=== PATIENT | female | born 1975 | race Hispanic/Latino ===

== ENCOUNTER 2018-03-09 14:33 | Emergency (ER) | payer BC ==
--- NOTE | 2018-03-09 14:56 | ED PDOC ---
Arrival/HPI - General Time Seen by Provider: 03/09/18 14:35 Historian: Patient - History of Present Illness Narrative History of Present Illness (Text): 03/09/18 14:45 42 year old female, whose PMH includes hyperthyroidism, who presents to the emergency department complaining of accidentally taking wrong medication prior to arrival. Patient reports she usually takes 3 to 4 Advil's for her neck arthritis pain, however she recently came from [place] and took the Advil bottle medication from her mother, which contained Metoprolol. Patient notes taking 3 or 4 tablets and began to feel lightheadedness, metallic taste in her mouth, and anxiousness. Patient denies chest pain, shortness of breath nausea, vomiting, or other complaints. She investigated the tablet with the pharmacist and it appeared to have an M/2 on the tablet so she believes it was Metoprolol 50mg XL for a total of possibly a max of 200mg XL at approximately 14:00. She used to take Atenolol, Meloxicam and Methaimazole for her hyperthyroidism but she hasn't because she's been traveling. PMD: None Time/Duration: Prior to Arrival Symptom Onset: Sudden Symptom Course: Unchanged Past Medical History - Provider Review Nursing Documentation Reviewed: Yes Family/Social History - Physician Review Nursing Documentation Reviewed: Yes Family/Social History: Unknown Family HX Allergies/Home Meds Allergies/Adverse Reactions: Allergies No Known Allergies Allergy (Verified 03/09/18 15:04) Home Medications: Home Meds Medication Instructions Recorded Confirmed Unobtainable 03/09/18 03/09/18 Review of Systems - Physician Review All systems were reviewed & negative as marked: Yes - Review of Systems Respiratory: absent: SOB Cardiovascular: absent: Chest Pain Gastrointestinal: absent: Abdominal Pain, Vomiting Neurological: Dizziness (lightheadedness ) Psychiatric: Anxiety Physical Exam Vital Signs Reviewed: Yes Vital Signs Temp Pulse Resp BP Pulse Ox 03/09/18 17:53 98.0 F 73 20 143/75 100 03/09/18 17:50 73 20 143/75 100 03/09/18 16:20 76 18 149/88 99 03/09/18 14:33 98.6 F 83 18 154/98 H 100 Temperature: Afebrile Blood Pressure: Hypertensive Pulse: Regular Respiratory Rate: Normal Appearance: Positive for: Well-Appearing, Comfortable Pain Distress: None Mental Status: Positive for: Alert and Oriented X 3 - Systems Exam Head: Present: Atraumatic, Normocephalic Pupils: Present: PERRL Extroacular Muscles: Present: EOMI Conjunctiva: Present: Normal Respiratory/Chest: Present: Clear to Auscultation, Good Air Exchange. No: Respiratory Distress, Accessory Muscle Use, Wheezes, Decreased Breath Sounds, Rales, Retracting, Rhonchi Cardiovascular: Present: Regular Rate and Rhythm, Normal S1, S2. No: Murmurs Abdomen: Present: Normal Bowel Sounds. No: Tenderness, Distention, Peritoneal Signs, Rebound, Guarding Upper Extremity: Present: Normal Inspection, Normal ROM, NORMAL PULSES, Neurovascularly Intact, Capillary Refill < 2s. No: Cyanosis, Edema, Tenderness , Swelling, Erythema, Deformity Lower Extremity: Present: Normal Inspection, NORMAL PULSES, Normal ROM, Neurovascularly Intact, Capillary Refill < 2 s. No: Edema, Cyanosis, Tenderness , Swelling, Erythema, Deformity Neurological: Present: GCS=15, CN II-XII Intact, Speech Normal, Motor Func Grossly Intact, Normal Sensory Function, Normal Cerebellar Funct, Memory Normal Skin: Present: Warm, Dry, Normal Color. No: Rashes Psychiatric: Present: Alert, Oriented x 3, Normal Insight, Normal Concentration Medical Decision Making ED Course and Treatment: 03/09/18 Impression: 42 year old female with unremarkable physical exam complaining of accidentally taking 3 to 4 Metoprolol tablets. Differential Diagnosis included but are not limited to: Accidental overdose at approx 14:00 with possibly Metoprolol 200mg XL max dose Plan: -- Close cardiac monitoring -- Case discussed with Poison Control [facility] who states that medication may not peak for 6 hours or more so he recommends observation. -- As per up to date: Duration: Oral: Immediate release: Variable (dose-related ; 50% reduction in maximum heart rate after single doses of 20, 50, and 100 mg occurred at 3.3, 5, and 6.4 hours, respectively); Extended release: ~24 hours -- She will be admitted for observation to telemetry. 03/09/18 16:42 Patient's blood pressure is stable and she's currently asymptomatic. Her WBC is 19. She has no cough. She has some urinary frequency. No fever. Will obtain a UA. 03/09/18 18:03 UA reviewed and negative for UTI. Leaving Against Medical Advice (AMA): The patient is choosing to leave against medical advice. I have personally explained to the patient that choosing to do so may result in permanent bodily harm or . I have discussed at great length that without further evaluation and monitoring there may be unforeseen circumstances and/or deterioration causing permanent bodily harm or as a result of their choice. The patient is alert, oriented, and shows the mental capacity to make clear decisions regarding the patients health care at this time. The patient continues to wish to leave against medical advice. In light of the patients decision to leave against medical advice, follow-up has been arranged and the patient is aware of the importance to following up as instructed. The patient has been advised that they should return to the emergency room immediately if they change their mind at any time, or if their condition begins to change or worsen in any way. - Lab Interpretations Lab Results: 03/09/18 16:08 03/09/18 16:08 Lab Results 03/09/18 16:55: Urine Color Yellow, Urine Appearance Clear, Urine pH 6.0, Ur Specific [place] 1.010, Urine Protein Negative, Urine Glucose (UA) Negative, Urine Ketones Negative, Urine Blood Negative, Urine Nitrate Negative, Urine Bilirubin Negative, Urine Urobilinogen 0.2, Ur Leukocyte Esterase Small H, Urine RBC 0 - 2, Urine WBC 2 - 5, Ur Epithelial Cells 4 - 5, Urine Bacteria Few 03/09/18 16:08: Sodium 141, Potassium 4.7, Chloride 108 H, Carbon Dioxide 21, Anion Gap 17, BUN 7, Creatinine 0.5 L, Est GFR ( Amer) > 60, Est GFR (Non -Af Amer) > 60, Random Glucose 113 H, Calcium 9.3 03/09/18 16:08: WBC 19.7 H, RBC 4.59, Hgb 13.4, Hct 38.9, MCV 84.7, MCH 29.2, MCHC 34.4, RDW 13.8, Plt Count 350, MPV 9.1, Gran % 78.7 H, Lymph % (Auto) 15.3 L, Burt % (Auto) 5.8, Eos % (Auto) 0.1 L, Baso % (Auto) 0.1, Gran # 15.49 H, Lymph # (Auto) 3.0, Burt # (Auto) 1.1 H, Eos # (Auto) 0.0, Baso # (Auto) 0.02 - Scribe Statement The provider has reviewed the documentation as recorded by the Silvano Campo Provider Scribe Attestation: All medical record entries made by the Scribe were at my direction and personally dictated by me. I have reviewed the chart and agree that the record accurately reflects my personal performance of the history, physical exam, medical decision making, and the department course for this patient. I have also personally directed, reviewed, and agree with the discharge instructions and disposition. Disposition/Present on Arrival - Present on Arrival Any Indicators Present on Arrival: No - Disposition Have Diagnosis and Disposition been Completed?: Yes Diagnosis: Accidental overdose Disposition: AGAINST MEDICAL ADVICE Disposition Time: 17:53 Patient Plan: Discharge Condition: FAIR Additional Instructions: YOUSIF GARCIA, thank you for letting us take care of you today. Your provider was Jose Roth DO and you were treated for ACCIDENTAL OVERDOSE. The emergency medical care you received today was directed at your acute symptoms. If you were prescribed any medication, please fill it and take as directed. It may take several days for your symptoms to resolve. Return to the Emergency Department if your symptoms worsen, do not improve, or if you have any other problems. Please contact your doctor or call one of the physicians/clinics you have been referred to that are listed on the Patient Visit Information form that is included in your discharge packet. Bring any paperwork you were given at discharge with you along with any medications you are taking to your follow up visit. Our treatment cannot replace ongoing medical care by a primary care provider outside of the emergency department. Thank you for allowing the [facility] team to be part of your care today. If you had an X-Ray or CT scan: A Radiologist will review the ED reading if any change in treatment is needed we will contact you. If you had a blood, urine, or wound culture: It will take several days for the results, if any change in treatment is needed we will contact you. If you had an STI test: It will take 48 hours for the results. Please call after 1 week if you have not heard back. Referrals: Judy Downing MD [Staff Provider] - Follow up with primary Forms: [employer] (Japanese), WORK NOTE
[2018-03-09 16:27] LABS: BASO # 0.02 K/mm3 (0.0-2.0); BASO % 0.1 % (0.0-3.0); EOS % 0.1 % (1.5-5.0); GRAN # 15.49 (1.4-6.5); GRAN % 78.7 % (50.0-68.0); HEMOGLOBIN 13.4 g/dL (12.0-16.0); LYMPH % 15.3 % (22.0-35.0); MEAN CELL VOLUME 84.7 fl (80.0-105.0); MEAN CORPUSCULAR HEMOGLOBIN 29.2 pg (25.0-35.0); MEAN CORPUSCULAR HGB CONC 34.4 g/dl (31.0-37.0); MEAN PLATELET VOLUME 9.1 fl (7.0-11.0); MONO # 1.1 (0.1-0.6); MONO % 5.8 % (1.0-6.0); RBC 4.59 10^6/uL (3.5-6.1); RED CELL DISTRIBUTION WIDTH 13.8 % (11.5-14.5); WHITE BLOOD COUNT 19.7 10^3/ul (4.5-11.0)
[2018-03-09 16:32] LABS: BLOOD UREA NITROGEN 7 mg/dL (7-21); CALCIUM 9.3 mg/dL (8.4-10.5); GFR AFRICAN-AMERICAN > 60; GFR NON-AFRICAN AMERICAN > 60
[2018-03-09 17:28] LABS: URINE BILIRUBIN NEGATIVE (NEGATIVE); URINE BLOOD NEGATIVE (NEGATIVE); URINE GLUCOSE (UA) NEGATIVE (NEGATIVE); URINE LEUKOCYTE ESTERASE SMALL Leu/uL (NEGATIVE); URINE PROTEIN NEGATIVE mg/dL (<30 mg/dL); URINE UROBILINOGEN 0.2 E.U./dL (<1 E.U./dL)
[2018-03-09 17:31] LABS: URINE APPEARANCE CLEAR (CLEAR); URINE COLOR YELLOW (YELLOW)
[2018-03-09 17:48] LABS: URINE BACTERIA FEW (NEG); URINE RBC 0 - 2 /hpf (0-2)
[2018-03-09 17:51] VITALS: BP 143/75; PULSE 73; RESP 20; O2SAT 100
[2018-03-09 18:14] VITALS: TEMP 98
== END 2018-03-09 17:53 | disposition left against medical advice (07) ==
LOC: ED 14:33
DX: T44.7X1A Poisoning by beta-adrenoreceptor antagonists, accidental (unintentional), initial encounter (principal); R42 Dizziness and giddiness